=== PATIENT | male | born 1980 | race Caucasian/White ===

== ENCOUNTER 2022-11-15 16:58 | Emergency (ER) | payer OTHER ==
[~2022-11-15] VITALS: Ht 188 cm; Wt 95.2 kg
[~2022-11-15 16:58] MED LIST: DIPH50 PO; FAMO40 PO; METPRE4DP PO
== END 2022-11-15 19:28 | disposition home or self-care (01) ==
LOC: ER 16:58
DX: S61.411A Laceration without foreign body of right hand, initial encounter (principal); W26.0XXA Contact with knife, initial encounter; Z91.013 Allergy to seafood; Z79.899 Other long term (current) drug therapy
CPT/HCPCS: 12001; 99282-25